=== PATIENT | male | born 1965 | race Caucasian/White ===

== ENCOUNTER 2017-06-27 05:46 | Emergency (ER) | payer OTHER ==
[~2017-06-27] VITALS: Ht 172.7 cm; Wt 99.0 kg
[2017-06-27 05:52] VITALS: TEMP 37.1; Ht 172.7 cm; Wt 99.0 kg
[2017-06-27] MEDS ORDERED: ALBUT/IPRATROP 3MG/0.5MG NEB 3 ML VIAL INH STA (05:59)
[2017-06-27] MEDS ORDERED: PSEU60TA80 PO (06:12)
[2017-06-27] MEDS ORDERED: ALBUTEROL HFA 8 GM INHALER INH STA (06:25)
[2017-06-27] MEDS ORDERED: AZITHROMYCIN 250 MG TAB PO STA (06:25)
--- NOTE | 2017-06-27 06:35 | EMERGENCY ROOM VISIT NOTE ---
History First contact with patient: 05:55 Chief Complaint: COUGH Stated Complaint: COUGH,CHEST CONGESTION Nursing Triage Summary: Congestion and cough for a few days. History of Present Illness The patient is a 52 year old male who presents to the Emergency Room with complaints of cough and congestion for the past 2 weeks. Patient denies chest pain, dyspnea, fever, chills, nausea, vomiting, diarrhea, sore throat, sinus pain. He also complains of runny nose. 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 No recent antibiotics. He does not smoke. No diabetes. Review of Systems See HPI for pertinent positives & negatives. A total of 10 systems reviewed and were otherwise negative. Past Medical/Surgical History Surgical Problems: (1) S/P tonsillectomy Family History No significant family history Social History Smoking Status: Never Smoker Drug Use: none Marital Status: single Occupation Status: employed Current/Historical Medications Scheduled PRN Pseudoephedrine-Guaifenesin (Mucinex D), 1 TAB PO BID PRN for Cough Physical Exam Vital Signs Date Time Temp Pulse Resp B/P (MAP) Pulse Ox O2 Delivery O2 Flow Rate FiO2 06/27/17 05:52 37.1 91 20 132/89 94 Room Air Physical Exam VITALS: Vitals are noted on the nurse's note and reviewed by myself. Vital signs stable. GENERAL: Pleasant male, in no acute distress, nondiaphoretic, well-developed well-nourished. SKIN: The skin was without rashes, erythema, edema, or bruising. There is no tenting of the skin. Capillary reflex less than 2 seconds. HEAD: Normocephalic atraumatic. EARS: External auditory canals clear, tympanic membranes pearly narvaez without erythema or effusion bilaterally. EYES: Pupils equal round and reactive to light and accommodation. Conjunctivae without injection, sclerae without icterus. Extraocular movements intact. NOSE: Patent, turbinates without inflammation or discharge. No sinus tenderness. MOUTH: Mucous membranes moist. Pharynx without erythema or exudate. Uvula midline. Airway patent. Tongue does not deviate. NECK: Supple without nuchal rigidity. No lymphadenopathy. No thyromegaly. Cervical spine is nontender. No JVD. HEART: Regular rate and rhythm without murmurs gallops or rubs. LUNGS: Mild diffuse end expiratory wheezes, without rales or rhonchi. No dullness to percussion. No retractions or accessory muscle use. ABDOMEN: Positive bowel sounds x 4. Normal tympanic percussion. Soft, nontender, without masses or organomegaly. Felix sign negative. No guarding or rebound tenderness. MUSCULOSKELETAL: No muscle atrophy, erythema, or edema noted. NEURO: Patient was alert and oriented to person place and time. Normal sensation to light and sharp touch. No focal neurological deficits. Medical Decision & Procedures Medications Administered Medications (Trade) Dose Ordered Sig/Torrie Route Start Time Stop Time Status Last Admin Dose Admin Albuterol/ Ipratropium (Duoneb) 3 ml NOW STAT INH 06/27/17 05:59 06/27/17 06:00 DC 06/27/17 06:04 3 ML ED Course Prior records/ancillary studies reviewed. Triage Nursing notes reviewed. The patient's history was concerning for cold sx Differential diagnosis: Etiologies such as viral syndrome, otitis, pharyngitis, pneumonia, influenza, meningitis, sepsis, bacteremia, as well as others were entertained. Physical examination: Patient was alert, interactive and well-appearing ER treatment provided: Nebulizer, Zithromax On reassessment the patient felt better. Diagnostics interpreted by me: Imaging studies: Chest x-ray with no acute consolidation, pneumothorax free air per my dictation This appears to be consistent with bronchitis. Patient has been sick for almost 2 weeks. I did opt to put him on antibiotics for possible atypical infection. He was not hypoxic. He does not smoke. No drug use. He was advised to take medications as directed, rest, stay well-hydrated and to follow- up family care in a few days or here in the ER sooner for chest pain, difficulty breathing, worsening signs or symptoms or as needed. By the evaluation outlined above emergent etiologies such as otitis, pharyngitis, meningitis, urinary tract infection, sepsis, bacteremia, as well as others were deemed relatively unlikely. The pt informed about the findings as listed above. All questions were answered and pleased with the treatment. Return instructions were outlined and the patient was discharged in stable condition. Outpatient prescription management: zithromax Referral: The patient was referred back to their primary care physician for follow-up in 2 to 3 days for a recheck of the current condition. case reviewed with my Attending Medical Decision as above Medication Reconcilliation Current Medication List: was personally reviewed by me Blood Pressure Screening Patient's blood pressure: Normal blood pressure Impression Primary Impression: Acute bronchitis Departure Information Dispostion Home / Self-Care Condition GOOD Referrals No Doctor, Assigned (PCP) Patient Instructions My [facility] Additional Instructions DO NOT drive, drink alcohol, operate machinery, or perform dangerous activities today. You were given medications in the ER that can affect your ability to safely function or operate a vehicle. Azithromycin(Zithromax) 250mg: Take one a day for 4 additional days. All antibiotics can cause diarrhea. If this occurs and you feel worse or it does not resolve in 1-2 days follow up with your doctor or return to the Emergency Department as this could be signs of serious underlying problems. Any medication can cause an allergic reaction, stop the pills immediately and return to the ER for rash, hives, breathing difficulties, or swelling. Albuterol Inhaler: Take 2 puffs four times daily for seven days, then as needed. Acetaminophen(Tylenol) may be used for fever or pain. Use 1000mg every six hours as needed. Avoid using more than 3000mg in a 24 hour period. AND/OR Ibuprofen(Motrin, Advil) may be used for fever or pain. Use 600mg every six hours as needed. Take with food. Avoid using more than 2400mg in a 24 hour period. Do not use 2400mg per day for more than three consecutive days without physician direction. Prolonged inappropriate use can lead to stomach upset or ulcers. Afrin nasal spray: 2-3 sprays to each nostril twice daily as needed for congestion. Do not use for more than 3-4 days because it can lead to worsening rebound congestion. Pseudoephedrine(Sudaphed): 30-60mg every 6 hours as needed for nasal congestion. Do not take this with other stimulant products or supplements. Rest and drink plenty of fluids. Controlling your fever with Tylenol and Ibuprofen as above will make you feel better. Wash your hands after nose blowing, sneezing, or coughing. Most germs are spread through contact, therefore improper hygiene may result in your close contacts and loved ones becoming ill just like you. Continue current medications. Return to the ER for severe headache, neck stiffness, chest pain, difficulty breathing, fevers, vomiting, worsening of your condition, or as needed. Follow up with your primary physician this week for a recheck of your current condition. Problem Qualifiers Primary Impression: Acute bronchitis Bronchitis organism: unspecified organism Qualified Codes: J20.9 - Acute bronchitis, unspecified
[2017-06-27] MEDS ORDERED: AZIT250T PO (06:36)
[2017-06-27 06:45] VITALS: BP 126/86; PULSE 79; O2SAT 99
--- NOTE | 2017-06-27 07:13 | DIAGNOSTIC IMAGING REPORT ---
CHEST 2 VIEWS ROUTINE CLINICAL HISTORY: 52 years-old Male presenting with cough/congestion. TECHNIQUE: PA and lateral views of the chest were obtained. COMPARISON: None. FINDINGS: Cardiomediastinal silhouette normal. Mildly prominent lung markings. Lungs and pleural spaces otherwise clear. Degenerative changes of the thoracic spine. Upper abdomen normal. IMPRESSION: 1. No focal infiltrate to suggest acute cardiopulmonary disease. Electronically signed by: Mark Callaway M.D. 06/27/2017 7:11 AM Dictated Date/Time: 06/27/2017 7:10 AM
== END 2017-06-27 06:46 | disposition home or self-care (01) ==
LOC: C.EDB 05:47
DX: J20.9 Acute bronchitis, unspecified (principal)

== ENCOUNTER 2017-07-30 01:11 | Emergency (ER) | payer OTHER ==
[~2017-07-30] VITALS: Ht 172.7 cm; Wt 99.6 kg
[~2017-07-30 01:11] MED LIST: PSEU60TA80 PO
[2017-07-30 01:16] VITALS: Ht 172.7 cm; Wt 99.6 kg
[2017-07-30] MEDS ORDERED: ACETAMINOPHEN 325 MG TAB PO STA (01:40)
[2017-07-30 02:15] LABS: INFLUENZA B ANTIGEN Neg for Influ B (NEG)
--- NOTE | 2017-07-30 02:16 | EMERGENCY ROOM VISIT NOTE ---
History Report prepared by French: Maciej Flores Under the Supervision of: Dr. Ryann Dave M.D. First contact with patient: 01:40 Chief Complaint: FEVER Stated Complaint: FEVER, CHILLS, SORE THROAT History of Present Illness The patient is a 52 year old male who presents to the Emergency Room with complaints of constant fevers and chills starting earlier today. The patient states that his temperature was 99.8 before he went to bed, and it went up to around 102.1 at 2000. He additionally states that he feels like his throat is burning, he's coughing, and he was having shortness of breath. He denies any vomiting or diarrhea. The patient states that he had bronchitis a couple of weeks ago, and he denies any other medical problems. He states that he got his flu shot this year. He denies any ear pain. He does not smoke. Source of History: patient Onset: earlier today Position: other (global) Quality: other (fever) Timing: constant Associated Symptoms: + cough, + SOB, No nausea, No diarrhea Note: Associated symptoms: Throat is burning Review of Systems See HPI for pertinent positives & negatives. A total of 10 systems reviewed and were otherwise negative. Past Medical & Surgical Surgical Problems: (1) S/P tonsillectomy Family History No significant family history Social History Smoking Status: Never Smoker Drug Use: none Marital Status: single Occupation Status: employed Current/Historical Medications Scheduled Oseltamivir (Tamiflu), 75 MG PO BID Scheduled PRN Pseudoephedrine-Guaifenesin (Mucinex D), 1 TAB PO BID PRN for Cough Allergies Coded Allergies: No Known Allergies (Unverified , 07/30/17) Physical Exam Vital Signs Date Time Temp Pulse Resp B/P (MAP) Pulse Ox O2 Delivery O2 Flow Rate FiO2 07/30/17 05:15 100 16 97 07/30/17 05:04 38.3 07/30/17 04:32 100 16 135/70 100 Room Air 07/30/17 01:16 39.6 119 20 132/69 94 Room Air Physical Exam Vital signs reviewed. General: Well-appearing male, in no significant distress. Noted to be febrile. HEENT: No scleral icterus, PERRLA, neck supple. Atraumatic. Cardiovascular: Regular rate and rhythm, no extra sounds. Pulmonary: Clear to auscultation bilaterally, normal work of breathing. Abdomen: Soft, nontender, nondistended, positive bowel sounds. Musculoskeletal: Atraumatic, no peripheral edema. Neurologic: Patient awake alert and oriented x 3, full strength in all 4 extremities. Cranial nerves 2 through 12 grossly intact. Skin: Warm, dry, no rash Medical Decision & Procedures ER Provider Diagnostic Interpretation: X-ray results as stated below per interpretation by me: Chest One View: No focal lung consolidation. Increased bibasilar interstitial markings. No failure. Laboratory Results Test 07/30/17 01:50 Influenza Type A (RT-PCR) POS for Influ A (NEG) Influenza Type A Antigen Neg for Influ A (NEG) Influenza Type B Antigen Neg for Influ B (NEG) Influenza Type B (RT-PCR) Neg for Influ B (NEG) Laboratory results per my review. Medications Administered Medications (Trade) Dose Ordered Sig/Torrie Route Start Time Stop Time Status Last Admin Dose Admin Acetaminophen (Tylenol Tab) 650 mg NOW STAT PO 07/30/17 01:40 07/30/17 01:41 DC 07/30/17 01:47 650 MG Oseltamivir Phosphate (Tamiflu Cap) 75 mg NOW STAT PO 07/30/17 04:48 07/30/17 04:49 DC 07/30/17 05:04 75 MG ED Course 0140: Past medical records reviewed. The patient was evaluated in room A10. A complete history and physical examination was performed. I ordered Tylenol Tab 650mg PO 0448: Tamiflu Cap 75mg PO 0509: Upon reevaluation, the patient appeared to have improvement of his symptoms. I discussed findings with him. He verbalized agreement of the treatment plan. He was discharged home. Medical Decision DDx: Influenza, other viral illness, pneumonia, urinary tract infection, metabolic abnormality, medication effect, cellulitis, meningitis, intra-abdominal source. This pt was given tylenol 650 mg po. Influenza swab is positive for influenza A. Pt was given tamiflu po. CXR is clear. Pt was educated on conservative management. He will continue to drink plenty of fluids. Pt will f/u with PCP this week and return to the ED for worsening of symptoms or any medical concerns. Medication Reconcilliation Current Medication List: was personally reviewed by me Blood Pressure Screening Patient's blood pressure: Normal blood pressure Impression Primary Impression: Influenza A Scribe Attestation The scribe's documentation has been prepared under my direction and personally reviewed by me in its entirety. I confirm that the note above accurately reflects all work, treatment, procedures, and medical decision making performed by me. Departure Information Dispostion Home / Self-Care Prescriptions Oseltamivir (Tamiflu) 75 Mg Cap 75 MG PO BID, #9 CAP Prov: Ryann Dave M.D. 07/30/17 Referrals Raudel Anderson M.D. (PCP) Forms HOME CARE DOCUMENTATION FORM, IMPORTANT VISIT INFORMATION, Work Instructions Patient Instructions My [facility] Additional Instructions Diagnosis: Influenza A Tamiflu 75 mg twice daily for 5 days. Tylenol 650 mg every 6 hours as needed for pain, fever. Ibuprofen 600 mg every 6 hours as needed for pain or fever. Drink plenty of clear fluids. Stay out of work until you are fever free for 24 hours without medications.
[2017-07-30 04:32] VITALS: BP 135/70
[2017-07-30 04:44] LABS: INFLUENZA A PCR POS for Influ A (NEG); INFLUENZA B PCR Neg for Influ B (NEG)
[2017-07-30] MEDS ORDERED: OSELTAMIVIR PHOSPHATE 75 MG CAP PO STA (04:48)
[2017-07-30 05:04] VITALS: TEMP 38.3
[2017-07-30] MEDS ORDERED: OSEL75CA12 PO (05:09)
[2017-07-30 05:15] VITALS: PULSE 100; O2SAT 97
--- NOTE | 2017-07-30 06:31 | DIAGNOSTIC IMAGING REPORT ---
CHEST ONE VIEW PORTABLE CLINICAL HISTORY: Fever, cough, like symptoms. COMPARISON STUDY: No previous studies for comparison. FINDINGS: The heart is normal in size. There is no focal pulmonary consolidation. There is slight vascular and interstitial prominence the lung bases. There are no pleural effusions. There is no overt failure.[ IMPRESSION: AP portable study. No evidence of focal pulmonary consolidation. Electronically signed by: Reece Jain M.D. 07/30/2017 6:29 AM Dictated Date/Time: 07/30/2017 6:29 AM
== END 2017-07-30 05:15 | disposition home or self-care (01) ==
LOC: C.EDB 01:12 → C.EDA 05:15
DX: J11.1 Influenza due to unidentified influenza virus with other respiratory manifestations (principal)

== ENCOUNTER → 2017-08-10 | Outpatient (CLI) | payer OTHER ==
[~2017-08-10] MED LIST changes: +OSEL75CA12 PO
[2017-08-10 09:29] LABS: BASO % 0.3 %; BASO ABS # 0.02 K/uL (0-0.2); EOS % 1.7 %; EOS ABS # 0.12 K/uL (0-0.5); HEMATOCRIT 43.3 % (42-52); HEMOGLOBIN 14.8 g/dL (14.0-18.0); IG# 0.02 K/uL (0.00-0.02); LYMPH % 31.2 %; MEAN CELL VOLUME 85.4 fL (80-100); MEAN CORPUSCULAR HEMOGLOBIN 29.2 pg (25-34); MEAN CORPUSCULAR HGB CONC 34.2 g/dl (32-36); MEAN PLATELET VOLUME 9.7 fL (7.4-10.4); MONO % 8.1 %; MONO ABS # 0.57 K/uL (0.11-0.59); NEUT % 58.4 %; NEUT ABS # 4.13 K/uL (1.4-6.5); PLATELET COUNT 282 K/uL (130-400); RED CELL DISTRIBUTION WIDTH SD 40.3 fL (36.4-46.3); WHITE BLOOD COUNT 7.06 K/uL (4.8-10.8)
[2017-08-10 09:47] LABS: ALT/SGPT 47 U/L (12-78); BLOOD UREA NITROGEN 14 mg/dl (7-18); CALCIUM 9.1 mg/dl (8.5-10.1); CARBON DIOXIDE 27 mmol/L (21-32); CHOLESTEROL 186 mg/dl (0-200); CREATININE 0.85 mg/dl (0.60-1.40); GLUCOSE 90 mg/dl (70-99); POTASSIUM 3.9 mmol/L (3.5-5.1); SODIUM 141 mmol/L (136-145)
[2017-08-10 09:50] LABS: ALKALINE PHOSPHATASE 99 U/L (45-117); AST/SGOT 19 U/L (15-37); LDL CHOLESTEROL CALCULATED 88 mg/dl; TOTAL PROTEIN 7.4 gm/dl (6.4-8.2)
== END | disposition home or self-care (01) ==
LOC: C.LAB 07:36
PROVIDERS: ATTEND Neuromusculoskeletal Medicine & OMM
DX: Z00.00 Encounter for general adult medical examination without abnormal findings (principal); Z13.220 Encounter for screening for lipoid disorders; Z13.1 Encounter for screening for diabetes mellitus

== ENCOUNTER 2020-10-03 20:48 | Inpatient (IN) ==
[2020-10-03 21:47] LABS: Hematocrit (blood only) 40.1 % (42-52); Hemoglobin 13.9 g/dL (14.0-18.0); Mean Corpuscular Hemoglobin 29.5 pg (25-34); Mean Corpuscular Hgb Conc 34.7 g/dL (32-36); Mean Corpuscular Volume 85.1 fL (80-100); Platelet Count 176 K/uL (130-400); RDW Coefficient of Variation 13.6 % (11.5-14.5); RDW Standard Deviation 42.3 fL (36.4-46.3); Red Blood Count 4.71 M/uL (4.7-6.1); White Blood Count 5.45 K/uL (4.8-10.8)
[2020-10-03] MEDS ORDERED: DEXAMETHASONE SOD INJ 4 MG/ML VIAL IV STA (22:04)
[2020-10-03 22:05] LABS: Basophils # (auto) 0.01 K/uL (0-0.2); Basophils % (auto) 0.2 %; Lymphocytes # (auto) 0.78 K/uL (1.2-3.4); Lymphocytes % (auto) 14.3 %; Monocytes # (auto) 0.39 K/uL (0.11-0.59); Monocytes % (auto) 7.2 %; Neutrophils # (auto) 4.27 K/uL (1.4-6.5); Neutrophils % (auto) 78.3 %
[2020-10-03] MEDS ORDERED: ACETAMINOPHEN 500 MG TAB PO STA (22:05)
[2020-10-03 22:06] LABS: Alanine Aminotransferase 68 U/L (12-78); Albumin Level 3.3 gm/dl (3.4-5.0); Aspartate Aminotransferase 80 U/L (15-37); BUN Creatinine Ratio 23.5 (10-20); Blood Urea Nitrogen 24 mg/dl (7-18); Calcium 8.3 mg/dl (8.5-10.1); Carbon Dioxide 24 mmol/L (21-32); Chloride 105 mmol/L (98-107); Creatinine Clr Calc Pharmacy 88.5 ml/min; Est GFR (African American) 93.2; Est GFR (Non-African American) 80.5; Glucose 125 mg/dl (70-99); Potassium 3.4 mmol/L (3.5-5.1); Sodium 136 mmol/L (136-145)
[2020-10-03 22:11] LABS: Albumin Globulin Ratio 0.9 (0.9-2); Alkaline Phosphatase 68 U/L (45-117); Bilirubin,Total 0.5 mg/dl (0.2-1); Globulin 3.7 gm/dl (2.5-4.0); Troponin I < 0.015 ng/ml (0-0.045)
[2020-10-03 22:26] LABS: INR 1.1 (0.9-1.1); Partial Thromboplastin Ratio 1.2; Partial Thromboplastin Time 30.4 Seconds (21.0-31.0); Prothrombin Time 10.9 Seconds (9.0-12.0)
[2020-10-03 22:38] LABS: D Dimer 540 ug/L FEU (0-500)
--- NOTE | 2020-10-03 23:53 | History & Physical Report ---
Date of Service October 03, 2020 Assessment & Plan (1) COVID-19: 55yo male with no significant past medical history with symptoms of fever, cough x 2 weeks. Found to be POSITIVE for Covid-19 on 09/27/20. Patient with ongoing fever, cough, chest discomfort. Hypoxic on arrival to 86% on room air - now improved to 93% on 4L NC. Patient appears comfortable with no respiratory distress. Labs are significant for lymphopenia as well as elevated Ddimer of 540, AST=80 and CRP=2.14. Procalcitonin minimally elevated at 0.7 CXR with bilateral airspace disease, possible consolidation on left -Admit to medical floor, maintain isolation precautions contact and airborne -Check BNP, Mg and PO4 -Dexamethasone 6mg IV daily -Supplemental O2 as needed to maintain saturation >94% -Prone as tolerated -Tylenol PRN pain or fever -Robitussin PRN cough -Albuterol HFA PRN SOB -Lovenox 40mg BID - BMI=30.9 F/E/N - Heplock. K=3.4, will administer KCl 40mEq and repeat labs in AM, check Mg and PO4 and replete as needed, Regular diet as tolerated Ppx - Lovenox 40 BID Code - Full per discussion with patient Dispo - Admit to medical Present on Admission?: Yes History of Present Illness Chief Complaint: fever, SOB Primary Care Provider: DO Elie Sprague Arlet is a 55yo C male with no significant past medical or surgical history presenting with ongoing fever, cough and SOB. Patient's symptoms first began approximately 2 weeks ago. He was seen by his PCP with xomplaint of fever and cough on 09/26/20 and tested POSITIVE for Covid-19 on 09/27/20. Patient reports ongoing daily fevers over the last 2 weeks as well as dry cough and some chest discomfort. He has diarrhea as well. No additional complaints at this time. Upon arrival to the ER patient found to be tachycardic at 106 bpm, tachypneic at 24 bpm saturating 86% on room air. He was placed on supplemental O2 by NC now at 4L with improvement in SpO2 to 93% ER Course: Dexamethasone, Tylenol Allergies Allergy/AdvReac Type Severity Reaction Status Date / Time No Known Allergies Allergy Unverified 10/03/20 21:10 Home Medications Medication Instructions Recorded Confirmed Type No Known Home Medications 09/26/20 10/03/20 History Past Med/Surg History Medical History (Updated 10/03/20 @ 23:47 by Chandrika Saha DO) No significant past medical history Surgical History (Updated 10/03/20 @ 23:45 by Chandrika Saha DO) S/P tonsillectomy Family History Mother Breast cancer Father Leukemia, acute Denies family history of Ovarian cancer Prostate cancer Myocardial infarction Colorectal cancer Social History (Updated 10/03/20 @ 23:45 by Chandrika Saha DO) Smoking Status: Never smoker Hx Alcohol Use: No Hx Substance Use: No Preferred Language: Pashto Feels Safe at Home: Yes Review of Systems Review of Systems: All systems reviewed & are unremarkable except as noted in HPI & below Physical Exam Physical Exam: General: patient resting comfortably, NAD, non-toxic in appearance, AA&O x 4 Skin: warm, dry, intact, no rashes or lesions HEENT: NC/AT, PERRL, EOMI, anicteric sclera, conjunctiva without injection, external ear normal to inspection and nontender, nares patent, moist mucus membranes, dentition intact, no oropharyngeal lesions, neck supple, trachea midline, no LAD, no thyromegaly, no JVD Heart: +S1/S2, regular, no m/r/g Lungs: equal air entry bilaterally, + end-expiratory wheezing bilaterally, no rales/rhonchi Abd: +BS, soft, NT/ND, no masses/organomegaly/ascites Ext: warm, 2+ pulses in UE/LE bilaterally, no clubbing/cyanosis or edema Neuro: nonfocal, patient AA&O x 4, speech intact, no facial droop, moving all extremities on command with equal strength 5/5 Results & Data Results & Data ([facility]) Vital Signs (Past 12 Hours) Vital Signs Temp Pulse Pulse Resp Resp BP BP 10/03/20 23:24 86 24 127/78 10/03/20 21:49 10/03/20 21:48 37.6 C 10/03/20 21:40 36.8 C 10/03/20 21:38 24 10/03/20 20:49 39.8 C H 106 H 18 128/74 Pulse Ox Pulse Ox 10/03/20 23:24 93 10/03/20 21:49 86 L 10/03/20 21:48 86 L 10/03/20 21:40 10/03/20 21:38 87 L 10/03/20 20:49 92 Laboratory Results Lab Results 10/03/20 10/03/20 10/03/20 Range/Units 21:29 21:29 21:29 WBC 5.45 (4.8-10.8) K/uL RBC 4.71 (4.7-6.1) M/uL Hgb 13.9 L (14.0-18.0) g/dL Hct 40.1 L (42-52) % MCV 85.1 (80-100) fL MCH 29.5 (25-34) pg MCHC 34.7 (32-36) g/dL RDW Std Deviation 42.3 (36.4-46.3) fL RDW Coeff of Oumou 13.6 (11.5-14.5) % Plt Count 176 (130-400) K/uL MPV 10.0 (7.4-10.4) fL Immature Gran % (Auto) 0.0 % Neut % (Auto) 78.3 % Lymph % (Auto) 14.3 % [place] % (Auto) 7.2 % Eos % (Auto) 0.0 % Baso % (Auto) 0.2 % Neut # (Auto) 4.27 (1.4-6.5) K/uL Lymph # (Auto) 0.78 L (1.2-3.4) K/uL [place] # (Auto) 0.39 (0.11-0.59) K/uL Eos # (Auto) 0.00 (0-0.5) K/uL Baso # (Auto) 0.01 (0-0.2) K/uL Immature Gran # (Auto) 0.00 (0.00-0.02) K/uL PT 10.9 (9.0-12.0) Seconds INR 1.1 (0.9-1.1) APTT 30.4 (21.0-31.0) Seconds PTT Ratio 1.2 D-Dimer 540 H* (0-500) ug/L FEU Sodium 136 (136-145) mmol/L Potassium 3.4 L (3.5-5.1) mmol/L Chloride 105 (98-107) mmol/L Carbon Dioxide 24 (21-32) mmol/L Anion Gap 7.0 (3-11) BUN 24 H (7-18) mg/dl Creatinine 1.04 (0.6-1.4) mg/dl Est Cr Clr Drug Dosing 88.5 ml/min Est GFR ( Amer) 93.2 Est GFR (Non-Af Amer) 80.5 BUN/Creatinine Ratio 23.5 H (10-20) Glucose 125 H (70-99) mg/dl Lactate (0.4-2.0) mmol/L Calcium 8.3 L (8.5-10.1) mg/dl Total Bilirubin 0.5 (0.2-1) mg/dl AST 80 H (15-37) U/L ALT 68 (12-78) U/L Alkaline Phosphatase 68 (45-117) U/L Troponin I < 0.015 (0-0.045) ng/ml C-Reactive Protein (0-0.29) mg/dl Total Protein 7.0 (6.4-8.2) gm/dl Albumin 3.3 L (3.4-5.0) gm/dl Globulin 3.7 (2.5-4.0) gm/dl Albumin/Globulin Ratio 0.9 (0.9-2) Procalcitonin (0-0.5) ng/ml 10/03/20 10/03/20 10/03/20 Range/Units 21:29 22:27 22:27 WBC (4.8-10.8) K/uL RBC (4.7-6.1) M/uL Hgb (14.0-18.0) g/dL Hct (42-52) % MCV (80-100) fL MCH (25-34) pg MCHC (32-36) g/dL RDW Std Deviation (36.4-46.3) fL RDW Coeff of Oumou (11.5-14.5) % Plt Count (130-400) K/uL MPV (7.4-10.4) fL Immature Gran % (Auto) % Neut % (Auto) % Lymph % (Auto) % [place] % (Auto) % Eos % (Auto) % Baso % (Auto) % Neut # (Auto) (1.4-6.5) K/uL Lymph # (Auto) (1.2-3.4) K/uL [place] # (Auto) (0.11-0.59) K/uL Eos # (Auto) (0-0.5) K/uL Baso # (Auto) (0-0.2) K/uL Immature Gran # (Auto) (0.00-0.02) K/uL PT (9.0-12.0) Seconds INR (0.9-1.1) APTT (21.0-31.0) Seconds PTT Ratio D-Dimer (0-500) ug/L FEU Sodium (136-145) mmol/L Potassium (3.5-5.1) mmol/L Chloride (98-107) mmol/L Carbon Dioxide (21-32) mmol/L Anion Gap (3-11) BUN (7-18) mg/dl Creatinine (0.6-1.4) mg/dl Est Cr Clr Drug Dosing ml/min Est GFR ( Amer) Est GFR (Non-Af Amer) BUN/Creatinine Ratio (10-20) Glucose (70-99) mg/dl Lactate 1.1 (0.4-2.0) mmol/L Calcium (8.5-10.1) mg/dl Total Bilirubin (0.2-1) mg/dl AST (15-37) U/L ALT (12-78) U/L Alkaline Phosphatase (45-117) U/L Troponin I (0-0.045) ng/ml C-Reactive Protein 2.04 H (0-0.29) mg/dl Total Protein (6.4-8.2) gm/dl Albumin (3.4-5.0) gm/dl Globulin (2.5-4.0) gm/dl Albumin/Globulin Ratio (0.9-2) Procalcitonin 0.70 H (0-0.5) ng/ml Diagnostic Findings CXR by my interpretation with bilateral airspace disease worst in bases, ?infiltrate LLL Code Status & VTE Plan VTE Prophylaxis Plan VTE Prophylaxis will be ordered: Yes PG Care Time/CCT Total # of Minutes Spent Total Time Spent with Patient: Total time spent is greater than 50% in coordination of care (as documented) at patient's floor/unit and/or counseling patient: Coding Level of Care Code 14042 Initial Inpt Care Lvl 2 Diagnoses COVID-19 U07.1
[2020-10-04] MEDS ORDERED: ALBUTEROL HFA 8 GM INHALER INH PRN (02:37)
[2020-10-04] MEDS ORDERED: ONDANSETRON INJ 2 MG/ML 2 ML VIAL IV PRN (02:37)
[2020-10-04] MEDS ORDERED: ACETAMINOPHEN 325 MG TAB PO PRN (02:37)
[2020-10-04] MEDS ORDERED: POTASSIUM CHLORIDE CRTAB 20 MEQ TABCR PO STA (02:37)
[2020-10-04] MEDS: ENOXAPARIN INJ 40 MG/0.4 ML SYR SQ SCH ×2 (02:59→17:45)
[2020-10-04 03:07] LABS: Magnesium 2.6 mg/dl (1.8-2.4); Phosphorus 2.3 mg/dl (2.5-4.9)
[2020-10-04 06:18] LABS: Basophils # (auto) 0.01 K/uL (0-0.2); Basophils % (auto) 0.2 %; Hematocrit (blood only) 40.2 % (42-52); Hemoglobin 13.7 g/dL (14.0-18.0); Immature Granulocytes # (auto) 0.01 K/uL (0.00-0.02); Immature Granulocytes % (auto) 0.2 %; Lymphocytes # (auto) 0.72 K/uL (1.2-3.4); Mean Corpuscular Hgb Conc 34.1 g/dL (32-36); Mean Corpuscular Volume 85.2 fL (80-100); Mean Platelet Volume 9.9 fL (7.4-10.4); Monocytes # (auto) 0.27 K/uL (0.11-0.59); Monocytes % (auto) 5.6 %; Neutrophils # (auto) 3.78 K/uL (1.4-6.5); Platelet Count 189 K/uL (130-400); RDW Coefficient of Variation 13.9 % (11.5-14.5); RDW Standard Deviation 43.8 fL (36.4-46.3); Red Blood Count 4.72 M/uL (4.7-6.1); White Blood Count 4.79 K/uL (4.8-10.8)
[2020-10-04 06:56] LABS: Albumin Level 3.1 gm/dl (3.4-5.0); Bilirubin Direct 0.1 mg/dl (0-0.2); Bilirubin,Total 0.5 mg/dl (0.2-1); Calcium 8.2 mg/dl (8.5-10.1); Creatinine Clr Calc Pharmacy 109.6 ml/min; Est GFR (African American) 114.2; Est GFR (Non-African American) 98.6
--- NOTE | 2020-10-04 07:48 | Hospitalist Progress Note ---
Date of Service October 04, 2020 Assessment & Plan (1) COVID-19: 55yo male with no significant past medical history with symptoms of fever, cough x 2 weeks.(duration of symptoms ? Remdesivir) Found to be POSITIVE for Covid-19 on 09/27/20. Patient with ongoing fever, cough, chest discomfort. Hyp oxic on arrival to 86% on room air - now improved to 93% on 4L NC. Patient appears comfortable with no respiratory distress. Labs are significant for lymphopenia as well as elevated D dimer of 540, AST=80 and CRP=2.14. Procalcitonin minimally elevated at 0.7 CXR with bilateral airspace disease, possible consolidation on left -covid airborne precautions -Dexamethasone 6mg IV daily -Supplemental O2 as needed to maintain saturation >94% -Prone as tolerated -Tylenol PRN pain or fever -Robitussin PRN cough -Albuterol HFA PRN SOB -Lovenox 40mg BID - BMI=30.9 Ppx - Lovenox 40 BID Code - Full per discussion with patient Dispo - Admit to medical Admission and Anticipated Discharge Date Admission Date: October 03, 2020 Subjective Patient is doing well still having diarrhea getting his taste and smell back. He still has a cough nonproductive he still is on 4 L of oxygen feels fairly dyspneic when he gets moving around his room Review of Systems Review of Systems: Mild distress and fatigue no headache, blurry or double vision no speech or swallowing issues no chest pain, pressure or palpitations Breath coughing and wheezing no abdominal pain, nausea or vomiting, diarrhea or constipation no dysuria, hematuria or frequency no focal joint pain or swelling no back pain, CVA tenderness or radicular pain no bruising, bleeding or rashes no focal signs of weakness or numbness or altered sensation no complaints of anxiety or depression.. Physical Exam Physical Exam: The patient appeared well nourished and normally developed. Vital signs as documented. Head exam is normocephalic atraumatic no scleral icterus Neck is without JVD, thyromegaly, or carotid bruits. Lungs are coarse rales bilaterally Cardiac exam, Rhythm is regular.. No murmurs, rubs or gallops. Abdominal exam reveals normal bowel sounds, soft non tender, no masses Extremities are nonedematous and both pedal pulses are present Neurologic exam is alert and oriented, no focal loss of strength or sensation Skin is without bruises or rashes Psychologically is without concerns for anxiety or depression Results & Data Results & Data ([facility]) Vital Signs (Past 12 Hours) Vital Signs Temp Pulse Pulse Resp Resp BP BP 10/04/20 02:40 97.7 F 75 137/87 10/04/20 02:11 70 24 113/74 10/04/20 01:50 70 26 H 10/04/20 01:40 77 28 H 10/04/20 01:30 71 26 H 10/04/20 01:20 72 27 H 10/04/20 01:10 74 28 H 10/04/20 01:00 75 25 H 10/04/20 00:50 76 26 H 10/04/20 00:40 76 27 H 10/04/20 00:30 76 32 H 10/04/20 00:20 78 28 H 10/04/20 00:10 78 25 H 10/04/20 00:00 79 31 H 10/03/20 23:50 78 30 H 10/03/20 23:40 79 29 H 10/03/20 23:30 88 20 10/03/20 23:24 84 86 30 H 127/78 127/78 10/03/20 23:20 83 31 H 10/03/20 23:10 86 28 H 10/03/20 23:00 90 26 H 10/03/20 22:50 83 37 H 10/03/20 22:40 86 32 H 10/03/20 22:30 92 H 26 H 10/03/20 22:20 89 28 H 10/03/20 22:10 92 H 24 10/03/20 22:00 92 H 17 10/03/20 21:50 90 28 H 10/03/20 21:49 10/03/20 21:48 99.6 F 10/03/20 21:40 98.3 F 93 H 23 10/03/20 21:38 24 10/03/20 21:30 94 H 19 10/03/20 21:22 96 H 21 10/03/20 21:18 93 H 23 134/76 10/03/20 20:49 103.6 F H 106 H 18 128/74 Pulse Ox Pulse Ox 10/04/20 02:40 97 10/04/20 02:11 93 10/04/20 01:50 94 04/08/21 01:40 94 10/04/20 01:30 94 10/04/20 01:20 94 10/04/20 01:10 94 10/04/20 01:00 92 10/04/20 00:50 92 10/04/20 00:40 92 10/04/20 00:30 92 10/04/20 00:20 94 10/04/20 00:10 93 10/04/20 00:00 94 10/03/20 23:50 93 10/03/20 23:40 93 10/03/20 23:30 96 10/03/20 23:24 94 10/03/20 23:20 94 10/03/20 23:10 94 10/03/20 23:00 93 10/03/20 22:50 94 10/03/20 22:40 94 10/03/20 22:30 97 10/03/20 22:20 96 10/03/20 22:10 97 10/03/20 22:00 96 10/03/20 21:50 96 10/03/20 21:49 86 L 10/03/20 21:48 86 L 10/03/20 21:40 90 10/03/20 21:38 87 L 10/03/20 21:30 10/03/20 21:22 10/03/20 21:18 10/03/20 20:49 92 PG Care Time/CCT Total # of Minutes Spent Total Time Spent with Patient: Total time spent is greater than 50% in coordination of care (as documented) at patient's floor/unit and/or counseling patient: Coding Level of Care Code 38417 Subseq Hosp Care Lvl 3 Diagnoses COVID-19 U07.1
--- NOTE | 2020-10-04 08:18 | XRay Report ---
XR chest 1V portable CLINICAL HISTORY: cough/SOB COMPARISON STUDY: Chest radiograph July 30, 2017. FINDINGS: There is elevation of the right hemidiaphragm. No pneumothorax or pleural effusion is noted . Moderate left mid lung airspace opacity is present. There is right basilar opacity. There is pulmon tino vascular congestion. IMPRESSION: Moderate left midlung opacity and right basilar opacity. The findings favor multifocal pneumonia. Rad iographic follow-up is recommended. ACT 112: Negative or not required by law. Electronically signed by: Bunny Carty M.D. 10/04/2020 8:16 AM
[2020-10-04] MEDS: dexAMETHasone 6 MG in SYRINGE 0 ML IV SCH (08:45)
--- NOTE | 2020-10-04 15:08 | Electrocardiogram Report ---
Test Reason : Blood Pressure : / mmHG Vent. Rate : 092 BPM Atrial Rate : 092 BPM P-R Int : 132 ms QRS Dur : 096 ms QT Int : 346 ms P-R-T Axes : 030 074 032 degrees QTc Int : 427 ms Poor data quality, interpretation may be adversely affected Normal sinus rhythm Normal ECG When compared with ECG of 24-MAR-2014 16:07, No significant change was found Confirmed by Jt Gaming ([id number]) on 10/04/2020 3:08:02 PM Referred By: REFERRED SELF Confirmed By:Jt Gaming
[2020-10-04] MEDS: guaiFENesin SUGAR FREE 100 MG/5 ML UDC PO PRN (17:51)
[2020-10-04] MEDS ORDERED: MELATONIN 3 MG TAB PO PRN (21:34)
--- NOTE | 2020-10-05 01:00 | Emergency Department Note ---
History of Present Illness General Chief complaint: Fever Stated complaint: COVID POSITIVE /FEVER Time Seen by Provider: 10/03/20 21:33 Source: patient Mode of arrival: ambulatory Limitations: no limitations History of Present Illness This patient is a 55-year-old male who presents to the ED for evaluation of COVID-19/persistent fevers. He initially developed symptoms 2 weeks ago and tested positive about 1 week ago. He has had loss of taste/smell, fevers, bodyaches and mild cough. He does not feel short of breath. He has had a decr eased appetite. Denies chest pain or vomiting. Denies any history of asthma/COPD. Home Medications Medication Instructions Recorded Confirmed Type No Known Home Medications 09/26/20 10/03/20 History Allergies Allergy/AdvReac Type Severity Reaction Status Date / Time No Known Allergies Allergy Unverified 10/03/20 21:10 Past Med/Surg History Medical History No significant past medical history Surgical History S/P tonsillectomy Family History Mother Breast cancer Father Leukemia, acute Denies family history of Ovarian cancer Prostate cancer Myocardial infarction Colorectal cancer Social History Smoking Status: Never smoker Hx Alcohol Use: No Hx Substance Use: No Preferred Language: Bengali Communication Ability: Effective 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 GENERAL: This is a 55-year-old male in no acute distress. SKIN: The skin was without rashes. EARS: External auditory canals clear, tympanic membranes pearly narvaez without erythema or effusion bilaterally. EYES: Pupils equal round and reactive to light and accommodation. NOSE: Patent, turbinates without inflammation or discharge. No sinus tenderness. MOUTH: Mucous membranes moist. Tonsils are not enlarged. Pharynx without erythema or exudate. NECK: Supple without nuchal rigidity. No lymphadenopathy. LUNGS: Decreased breath sounds throughout. No retractions or accessory muscle use. ABDOMEN: Positive bowel sounds x 4. Soft, nontender. EXTREMITIES: No swelling of the lower extremities. No calf tenderness. NEURO: Patient was alert and oriented to person place and time. Course Administered Medications Enoxaparin Sodium (Enoxaparin Inj 40 Mg/0.4 Ml Syr) 40 mg SQ Q12H QUENTIN Stop: 11/03/20 02:59 Last Admin: 10/04/20 17:45 Dose: 40 mg Documented by: [id number] Admin: 10/04/20 02:59 Dose: 40 mg Documented by: [id number] Guaifenesin (Guaifenesin Sugar Free 100 Mg/5 Ml Udc) 100 mg PO Q6H PRN PRN Reason: Cough Stop: 11/03/20 02:36 Last Admin: 10/04/20 17:51 Dose: 100 mg Documented by: [id number] Dexamethasone 6 mg/ Syringe 1.5 mls @ 1 mls/min IV Q24H QUENTIN Stop: 11/03/20 08:59 Last Admin: 10/04/20 08:45 Dose: 1 mls/min Documented by: [id number] Melatonin (Melatonin 3 Mg Tab) 3 mg PO HS PRN PRN Reason: Sleep Stop: 11/03/20 21:33 Last Admin: 10/04/20 22:21 Dose: 3 mg Documented by: [id number] Discontinued Medications Acetaminophen (Acetaminophen 500 Mg Tab) 1,000 mg PO NOW STA Stop: 10/03/20 22:06 Last Admin: 10/03/20 22:30 Dose: 1,000 mg Documented by: [id number] Dexamethasone (Dexamethasone Sod Inj 4 Mg/Ml Vial) 6 mg IV NOW STA Stop: 10/03/20 22:05 Last Admin: 10/03/20 22:30 Dose: 6 mg Documented by: [id number] Potassium Chloride (Potassium Chloride Crtab 20 Meq Tabcr) 40 meq PO NOW STA Stop: 10/04/20 02:38 Last Admin: 10/04/20 02:59 Dose: 40 meq Documented by: [id number] Medical Decision Making Differential Diagnosis Reactive airway disease, pneumonia, pneumothorax, COPD, CHF, infections, cardiac ischemia, pulmonary embolism, musculoskeletal, gastrointestinal, as well as other pathologies. Home Medications Current Medication List: was personally reviewed by me Laboratory Data Attestation: I reviewed the patient's lab results. Result diagrams: 10/04/20 06:06 10/04/20 06:06 Lab Results 10/03/20 10/03/20 10/03/20 Range/Units 21:29 21:29 21:29 WBC 5.45 (4.8-10.8) K/uL RBC 4.71 (4.7-6.1) M/uL Hgb 13.9 L (14.0-18.0) g/dL Hct 40.1 L (42-52) % MCV 85.1 (80-100) fL MCH 29.5 (25-34) pg MCHC 34.7 (32-36) g/dL RDW Std Deviation 42.3 (36.4-46.3) fL RDW Coeff of Oumou 13.6 (11.5-14.5) % Plt Count 176 (130-400) K/uL MPV 10.0 (7.4-10.4) fL Immature Gran % (Auto) 0.0 % Neut % (Auto) 78.3 % Lymph % (Auto) 14.3 % Yates % (Auto) 7.2 % Eos % (Auto) 0.0 % Baso % (Auto) 0.2 % Neut # (Auto) 4.27 (1.4-6.5) K/uL Lymph # (Auto) 0.78 L (1.2-3.4) K/uL Yates # (Auto) 0.39 (0.11-0.59) K/uL Eos # (Auto) 0.00 (0-0.5) K/uL Baso # (Auto) 0.01 (0-0.2) K/uL Immature Gran # (Auto) 0.00 (0.00-0.02) K/uL PT 10.9 (9.0-12.0) Seconds INR 1.1 (0.9-1.1) APTT 30.4 (21.0-31.0) Seconds PTT Ratio 1.2 D-Dimer 540 H* (0-500) ug/L FEU Sodium 136 (136-145) mmol/L Potassium 3.4 L (3.5-5.1) mmol/L Chloride 105 (98-107) mmol/L Carbon Dioxide 24 (21-32) mmol/L Anion Gap 7.0 (3-11) BUN 24 H (7-18) mg/dl Creatinine 1.04 (0.6-1.4) mg/dl Est Cr Clr Drug Dosing 88.5 ml/min Est GFR ( Amer) 93.2 Est GFR (Non-Af Amer) 80.5 BUN/Creatinine Ratio 23.5 H (10-20) Glucose 125 H (70-99) mg/dl Lactate (0.4-2.0) mmol/L Calcium 8.3 L (8.5-10.1) mg/dl Phosphorus 2.3 L (2.5-4.9) mg/dl Magnesium 2.6 H (1.8-2.4) mg/dl Total Bilirubin 0.5 (0.2-1) mg/dl AST 80 H (15-37) U/L ALT 68 (12-78) U/L Alkaline Phosphatase 68 (45-117) U/L Troponin I < 0.015 (0-0.045) ng/ml C-Reactive Protein (0-0.29) mg/dl Total Protein 7.0 (6.4-8.2) gm/dl Albumin 3.3 L (3.4-5.0) gm/dl Globulin 3.7 (2.5-4.0) gm/dl Albumin/Globulin Ratio 0.9 (0.9-2) Procalcitonin (0-0.5) ng/ml 10/03/20 10/03/20 10/03/20 Range/Units 21:29 22:27 22:27 WBC (4.8-10.8) K/uL RBC (4.7-6.1) M/uL Hgb (14.0-18.0) g/dL Hct (42-52) % MCV (80-100) fL MCH (25-34) pg MCHC (32-36) g/dL RDW Std Deviation (36.4-46.3) fL RDW Coeff of Oumou (11.5-14.5) % Plt Count (130-400) K/uL MPV (7.4-10.4) fL Immature Gran % (Auto) % Neut % (Auto) % Lymph % (Auto) % Yates % (Auto) % Eos % (Auto) % Baso % (Auto) % Neut # (Auto) (1.4-6.5) K/uL Lymph # (Auto) (1.2-3.4) K/uL Yates # (Auto) (0.11-0.59) K/uL Eos # (Auto) (0-0.5) K/uL Baso # (Auto) (0-0.2) K/uL Immature Gran # (Auto) (0.00-0.02) K/uL PT (9.0-12.0) Seconds INR (0.9-1.1) APTT (21.0-31.0) Seconds PTT Ratio D-Dimer (0-500) ug/L FEU Sodium (136-145) mmol/L Potassium (3.5-5.1) mmol/L Chloride (98-107) mmol/L Carbon Dioxide (21-32) mmol/L Anion Gap (3-11) BUN (7-18) mg/dl Creatinine (0.6-1.4) mg/dl Est Cr Clr Drug Dosing ml/min Est GFR ( Amer) Est GFR (Non-Af Amer) BUN/Creatinine Ratio (10-20) Glucose (70-99) mg/dl Lactate 1.1 (0.4-2.0) mmol/L Calcium (8.5-10.1) mg/dl Phosphorus (2.5-4.9) mg/dl Magnesium (1.8-2.4) mg/dl Total Bilirubin (0.2-1) mg/dl AST (15-37) U/L ALT (12-78) U/L Alkaline Phosphatase (45-117) U/L Troponin I (0-0.045) ng/ml C-Reactive Protein 2.04 H (0-0.29) mg/dl Total Protein (6.4-8.2) gm/dl Albumin (3.4-5.0) gm/dl Globulin (2.5-4.0) gm/dl Albumin/Globulin Ratio (0.9-2) Procalcitonin 0.70 H (0-0.5) ng/ml Imaging Data Attestation: I personally reviewed and interpreted this imaging study as follows: My Impression: CHEST 1 VIEW: Bilateral opacities consistent with multifocal pneumonia. ECG Data Attestation: I personally reviewed and interpreted this ECG as follows: Indication: + SOB/dyspnea Rate (beats per minute): 92 Rhythm: + normal sinus ECG Intervals/blocks: + Normal QRS Change: no significant change MDM Narrative The patient is a 55-year-old male who presents today complaining of persistent COVID-19 symptoms. Labs showed no leukocytosis or concerning electrolyte abnormalities. Troponin was not elevated. Dimer minimally elevated, likely due to COVID-19 infection. Chest x-ray was consistent with multifocal pneumonia. Procalcitonin was very minimally elevated, and with normal WBC count decided not to give abx at this time. Patient was found to be hypoxic with sats in the 80s. He was placed on oxygen via nasal cannula and given dexamethasone 6 mg IV. C ase was discussed with the [facility] hospitalist service, who agreed to evaluate the patient for further care. Based on the patient's presentation and work up, I feel the patient is stable for outpatient treatment. The patient was educated to return to the emergency department for any worsening of their current condition or new/concerning symptoms. [] will follow up with []. Impression & Plan Pneumonia due to COVID-19 virus, Hypoxia Discharge Plan Visit Data Chief Complaint: Fever Stated Complaint: COVID POSITIVE /FEVER ED Provider: David Dougherty ED Midlevel Provider: Lilibeth Sifuentes Discharge Problem: Pneumonia due to COVID-19 virus, Hypoxia Patient Disposition: Admitted As Inpatient Discharge Instructions Interventions: ED Discharge Assessment Last Done: 10/04/20 02:14
[2020-10-05] MEDS: guaiFENesin SUGAR FREE 100 MG/5 ML UDC PO PRN (04:13)
[2020-10-05] MEDS: ENOXAPARIN INJ 40 MG/0.4 ML SYR SQ SCH (06:04)
[2020-10-05] MEDS: dexAMETHasone 6 MG in SYRINGE 0 ML IV SCH (07:38)
--- NOTE | 2020-10-05 18:19 | Discharge Summary ---
Date of Service October 05, 2020 Admission HPI Per Admitting Provider Elie Nice is a 55yo C male with no significant past medical or surgical history presenting with ongoing fever, cough and SOB. Patient's symptoms first began approximately 2 weeks ago. He was seen by his PCP with xomplaint of fever and cough on 09/26/20 and tested POSITIVE for Covid-19 on 09/27/20. Patient reports ongoing daily fevers over the last 2 weeks as well as dry cough and some chest discomfort. He has diarrhea as well. No additional complaints at this time. Upon arrival to the ER patient found to be tachycardic at 106 bpm, tachypneic at 24 bpm saturating 86% on room air. He was placed on supplemental O2 by NC now at 4L with improvement in SpO2 to 93% ER Course: Dexamethasone, Tylenol Principal Diagnosis Covid 19 pneumonia Discharge Exam The patient appeared well Vital signs as documented. Respiratory effort appears unlabored lungs are clear despite Covid diagnosis Cardiac exam, Rhythm is regular.. No murmurs, rubs or gallops. Abdominal exam reveals normal bowel sounds, soft non tender, no masses Extremities are nonedematous and both pedal pulses are normal. Neurologic exam is alert and oriented, no focal loss of strength or sensation Skin is without bruises or rashes Psychologically is without concerns for anxiety or depression. Discharge Data Allergies Allergy/AdvReac Type Severity Reaction Status Date / Time No Known Allergies Allergy Unverified 10/03/20 21:10 Consultations 10/03/20 23:15 ED Decision to Admit Stat Hospital Course (1) COVID-19: 55yo male with no significant past medical history with symptoms of fever, cough x 2 weeks.(duration of symptoms ? Remdesivir) Found to be POSITIVE for Covid-19 on 09/27/20. Patient with ongoing fever, cough, chest discomfort. Hypoxic on arrival to 86% on room air - now improved to 93% on 4L NC. Patient appears comfortable with no respiratory distress. Labs are significant for lymphopenia as well as elevated D dimer of 540, AST=80 and CRP=2.14. Procalcitonin minimally elevated at 0.7 CXR with bilateral airspace disease, possible consolidation on left Patient improved to 2 separate was performed prior to going home he was found not to require oxygen. Patient will have dexamethasone sent to his outpatient pharmacy patient be given off work 21 days from onset of symptoms symptoms however are clear his date of testing was September 27 therefore off till October 19 Code - Full per discussion with patient Dispo - Admit to medical Total Time Total Time Spent Total Time Spent (In Minutes): It required greater than 30 minutes to prepare this patient for discharge Discharge Plan Discharge Items Patient Disposition: Home - Self-Care Reason For Visit: COVID-19, HYPOXIA Discharge Diagnosis: covid pneumonia Activity: Per Instructions section Activity Comment: rest and recover good food and drink Non-emergency contact: Primary Care Provider Call non-emergency contact if: you have any medication questions, your symptoms worsen and your temperature is above 101 Follow-up/Referrals: Francisco Javier Barbour, [Primary Care Provider] - Diet: Regular Addtl Attending Provider Instructions: Home Isolation COVID-19 Instructions The following information about Home Isolation is from the CDC Website: https://www.cdc.gov/coronavirus/2019-ncov/hcp/ruzzmfzc-gznvnnw-xbvtca.html Stay home except to get medical care People who are mildly ill with COVID-19 are able to isolate at home during their illness. You should restrict activities outside your home, except for getting medical care. Do not go to work, school, or public areas. Avoid using public transportation, ride-sharing, or taxis. Separate yourself from other people and animals in your home People: As much as possible, you should stay in a specific room and away from other people in your home. Also, you should use a separate bathroom, if available. Animals: You should restrict contact with pets and other animals while you are sick with COVID-19, just like you would around other people. Although there have not been reports of pets or other animals becoming sick with COVID-19, it is still recommended that people sick with COVID-19 limit contact with animals until more information is known about the virus. When possible, have another member of your household care for your animals while you are sick. If you are sick with COVID-19, avoid contact with your pet, including petting, snuggling, being kissed or licked, and sharing food. If you must care for your pet or be around animals while you are sick, wash your hands before and after you interact with pets and wear a face mask. Call ahead before visiting your doctor If you have a medical appointment, call the healthcare provider and tell them that you have or may have COVID-19. This will help the healthcare providers office take steps to keep other people from getting infected or exposed. Wear a face mask You should wear a face mask when you are around other people (e.g., sharing a room or vehicle) or pets and before you enter a healthcare providers office. If you are not able to wear a face mask (for example, because it causes trouble breathing), then people who live with you should not stay in the same room with you, or they should wear a face mask if they enter your room. Cover your coughs and sneezes Cover your mouth and nose with a tissue when you cough or sneeze. Throw used tissues in a lined trash can. Immediately wash your hands with soap and water for at least 20 seconds or, if soap and water are not available, clean your hands with an alcohol-based hand service order clerk that contains at least 60% alcohol. Clean your hands often Wash your hands often with soap and water for at least 20 seconds, especially after blowing your nose, coughing, or sneezing; going to the bathroom; and before eating or preparing food. If soap and water are not readily available, use an alcohol-based hand service order clerk with at least 60% alcohol, covering all surfaces of your hands and rubbing them together until they feel dry. Soap and water are the best option if hands are visibly dirty. Avoid touching your eyes, nose, and mouth with unwashed hands. Avoid sharing personal household items You should not share dishes, drinking glasses, cups, eating utensils, towels, or bedding with other people or pets in your home. After using these items, they should be washed thoroughly with soap and water. Clean all high-touch surfaces everyday High touch surfaces include counters, tabletops, doorknobs, bathroom fixtures, toilets, phones, keyboards, tablets, and bedside tables. Also, clean any surfaces that may have blood, stool, or body fluids on them. Use a household cleaning spray or wipe, according to the label instructions. Labels contain instructions for safe and effective use of the cleaning product including precautions you should take when applying the product, such as wearing gloves and making sure you have good ventilation during use of the product. Monitor your symptoms Seek prompt medical attention if your illness is worsening (e.g., difficulty breathing).Beforeseeking care, call your healthcare provider and tell them that you have, or are being evaluated for, COVID-19. Put on a face mask before you enter the facility. These steps will help the healthcare providers office to keep other people in the office or waiting room from getting infected or exposed. Ask your healthcare provider to call the local or state health department. Persons who are placed under active monitoring or facilitated self-monitoring should follow instructions provided by their local health department or occupational health professionals, as appropriate. When working with your local health department check their available hours. If you have a medical emergency and need to call 911, notify the dispatch personnel that you have, or are being evaluated for COVID-19. If possible, put on a face mask before emergency medical services arrive. Discontinuing home isolation Patients with confirmed COVID-19 should remain under home isolation precautions until the risk of secondary transmission to others is thought to be low. The decision to discontinue home isolation precautions should be made on a [id number] basis, in consultation with healthcare providers and [facility] and [facility] health departments. Pending Studies at Discharge: No Stand-Alone Forms: [facility] [employer], Work/School Release (Inpt), Smoking Cessation Medications and DC Order Prescriptions: New dexamethasone [Decadron] 6 mg tablet 6 mg PO DAILY Qty: 8 RF: 0 No Action No Known Home Medications RF: 0 Discharge Orders: Discharge Order (Routine); Ordered 10/05/20 Ordered By: Elie Shaw/Other Patient Handouts: COVID-19 Home Care Admission Data Admit Date/Time: 10/03/20 23:40 Attending Provider: Elie Beckman Admit Provider: Chandrika Saha Primary Care Provider: Francisco Javier Barbour Other Providers: Chandrika Saha Other Interventions: Discharge Summary Assessment (RN) Last Done: 10/05/20 14:29 Coding Level of Care Code D/C Day Management >30 mins Diagnoses COVID-19 U07.1
== END 2020-10-05 15:59 | disposition home or self-care (01) | DRG 177 ==
LOC: ED 20:48 → 3E 23:40 → SUATTDRO 23:40 → 3E 10-04 02:14